=== PATIENT | male | born 1955 | race Caucasian/White ===

== ENCOUNTER 2023-07-03 13:24 | Inpatient (IN) | payer OTHER ==
[~2023-07-03] VITALS: Ht 175.3 cm; Wt 101.1 kg
[2023-07-03 13:58] LABS: Basophils # (auto) 0 10 ^3/uL (0-0.2); Basophils % (auto) 0.2 % (0.0-2.0); Eosinophils # (auto) 0.3 10 ^3/uL (0-0.8); Eosinophils % (auto) 4.5 % (0.0-7.0); Hematocrit 49.2 % (41.0-53.0); Hemoglobin 16.4 g/dL (13.5-17.5); Lymphocytes % (auto) 14.8 % (10.0-50.0); Mean Corpuscular Hemoglobin 29.4 pg (28.0-32.0); Mean Corpuscular Hgb Conc. 33.3 g/dL (32.0-36.0); Mean Corpuscular Volume 88.4 fL (80.0-100.0); Monocytes # (auto) 0.6 10 ^3/uL (0-1.3); Monocytes % (auto) 8.3 % (0.0-12.0); Neutrophils # (auto) 4.9 10 ^3/uL (1.6-8.6); Neutrophils % (auto) 72.2 % (37.0-80.0); Nucleated Red Blood Cells % 0.1 %; Red Blood Cells 5.57 10^6/uL (4.5-5.90); Red Cell Distribution Width 14.9 % (11.8-14.3); White Blood Cell 6.8 10^3/uL (4.4-10.8)
[2023-07-03 14:18] LABS: Alanine Aminotransferase 34 U/L (7-40); Albumin 4.5 g/dL (3.2-4.8); Alkaline Phosphatase 84 U/L (46-116); Anion Gap 7 (5-15); Aspartate Aminotransferase 22 U/L (13-40); BUN/Creatinine Ratio 12.5 (10.0-20.0); Blood Urea Nitrogen 17 mg/dL (9-23); Calcium 9.3 mg/dL (8.5-10.1); Carbon Dioxide 25 mmol/L (20-30); Chloride 106 mmol/L (98-107); Glucose 134 mg/dL (74-106); Potassium 3.7 mmol/L (3.5-5.1); Sodium 138 mmol/L (136-145)
[2023-07-03 14:19] LABS: Bilirubin, Total 0.5 mg/dL (0.2-1.0); Total Protein 6.9 g/dL (5.7-8.2)
[2023-07-03 14:21] LABS: INR 0.99 (0.9-1.15); Prothrombin Time 10.4 sec (9.3-11.8)
[2023-07-03] MEDS: ASPirin-EC 325mg tab PO ONE (14:27)
[2023-07-03 14:37] VITALS: PULSE 62; RESP 16; O2SAT 96
[2023-07-03 15:53] LABS: Urine Bacteria NONE SEEN /hpf (None Seen); Urine Blood Negative /uL (Negative); Urine Clarity Clear (Clear); Urine Color Colorless (Yellow); Urine Protein, UAD Negative (Negative); Urine Specific Gravity 1.005 (1.001-1.035); Urine Urobilinogen Normal (Negative); Urine WBC <1 /hpf (0 - 3); Urine pH 6.5 (5.0-8.0)
[2023-07-03] MEDS ORDERED: HYDROcodone-ACET 5/325MG TAB PO PRN (17:15)
[2023-07-03] MEDS ORDERED: NITROGLYCERIN 0.4 MG SL TAB SL PRN (17:15)
[2023-07-03] MEDS ORDERED: MORPHINE SULFATE INJ 2 MG/ml SYRG IV PRN (17:15)
[2023-07-03] MEDS ORDERED: ONDANSETRON HCL 4 MG/2 ML VIAL IV PRN (17:15)
[2023-07-03] MEDS ORDERED: ACETAMINOPHEN 325 MG TAB PO PRN (17:15)
[2023-07-03] MEDS ORDERED: DOCUSATE SOD 100 MG CAP PO PRN (17:15)
[2023-07-03 19:25] VITALS: PULSE 77; RESP 17; O2SAT 97
[2023-07-03 22:10] VITALS: BP 109/69; PULSE 65; RESP 16; TEMP 97.7; O2SAT 100
[2023-07-03 22:11] VITALS: BP 109/69; PULSE 62; PULSE 65; RESP 16; RESP 18; TEMP 97.7; O2SAT 100; O2SAT 98
[2023-07-03] MEDS ORDERED: LISI10TA34 PO (22:54)
[2023-07-03] MEDS ORDERED: OMEP-448 (22:54)
[2023-07-03] MEDS ORDERED: ATOR10TA52 PO (22:54)
[2023-07-03] MEDS ORDERED: ASPI-543 PO (22:54)
[2023-07-03] MEDS: SODIUM CHLOR 0.9% PF (SALINE LOCK) 10ML VIAL/SYR IV SCH (23:00)
[2023-07-04] VITALS (9 sets, daily range): BP systolic 108–124; BP diastolic 67–84; PULSE 58–74; RESP 14–22; TEMP 97.3–98.4; O2SAT 98–100
[2023-07-04] MEDS: ENOXAPARIN SOD 40 MG/0.4 ML SYRINGE SC SCH (09:33)
[2023-07-05] VITALS (8 sets, daily range): BP systolic 121–147; BP diastolic 73–89; PULSE 53–82; RESP 18–22; TEMP 97.6–98.5; O2SAT 96–100
[2023-07-05 10:24] LABS: Hepatitis B Surface Antigen Negative (Negative)
[2023-07-05 10:45] LABS: Hepatitis C Antibody Negative (Negative)
[2023-07-05] MEDS: ASPirin-EC 81 mg tab PO SCH (12:06)
[2023-07-05] MEDS: LISINOPRIL 5 MG TAB PO SCH (12:07)
[2023-07-05] MEDS ORDERED: SUCR1SUS26 PO (12:55)
[2023-07-05] MEDS: SUCRALFATE 1 GM/10 ML ORAL SUSP PO SCH (18:12)
[2023-07-05] MEDS: ATORVASTATIN 20 MG TAB PO SCH (21:13)
[2023-07-06] VITALS (13 sets, daily range): BP systolic 100–126; BP diastolic 60–87; PULSE 54–79; RESP 14–20; TEMP 97.3–98.5; O2SAT 94–100
[2023-07-06 13:23] LABS: Basophils # (auto) 0 10 ^3/uL (0-0.2); Basophils % (auto) 0.3 % (0.0-2.0); Eosinophils # (auto) 0.2 10 ^3/uL (0-0.8); Eosinophils % (auto) 2.8 % (0.0-7.0); Hemoglobin 16.8 g/dL (13.5-17.5); Lymphocytes # (auto) 0.8 10 ^3/uL (0.4-5.4); Lymphocytes % (auto) 12.2 % (10.0-50.0); Mean Corpuscular Hemoglobin 29.6 pg (28.0-32.0); Mean Corpuscular Hgb Conc. 33.6 g/dL (32.0-36.0); Mean Corpuscular Volume 88.2 fL (80.0-100.0); Monocytes # (auto) 0.5 10 ^3/uL (0-1.3); Monocytes % (auto) 7.9 % (0.0-12.0); Neutrophils # (auto) 4.8 10 ^3/uL (1.6-8.6); Neutrophils % (auto) 76.8 % (37.0-80.0); Nucleated Red Blood Cells % 0.2 %; Red Blood Cells 5.67 10^6/uL (4.5-5.90); Red Cell Distribution Width 14.6 % (11.8-14.3); White Blood Cell 6.3 10^3/uL (4.4-10.8)
[2023-07-06 13:34] LABS: Alanine Aminotransferase 34 U/L (7-40); Albumin 4.4 g/dL (3.2-4.8); Alkaline Phosphatase 90 U/L (46-116); Anion Gap 6 (5-15); Aspartate Aminotransferase 22 U/L (13-40); BUN/Creatinine Ratio 9.2 (10.0-20.0); Bilirubin, Total 0.7 mg/dL (0.2-1.0); Blood Urea Nitrogen 11 mg/dL (9-23); Calcium 9.4 mg/dL (8.7-10.4); Carbon Dioxide 24 mmol/L (20-30); Chloride 109 mmol/L (98-107); Glucose 88 mg/dL (74-106); Potassium 4.1 mmol/L (3.5-5.1); Sodium 139 mmol/L (136-145); Total Protein 6.8 g/dL (5.7-8.2)
[2023-07-06 13:36] LABS: Prothrombin Time 10.5 sec (9.3-11.8)
[2023-07-06] MEDS: VERAPAMIL 2.5MG/ML INJ 2ML VIAL IV ONE (14:03)
[2023-07-06] MEDS: HEPARIN SODIUM (PORCINE) 5000 UNITS/ML 1ML VIAL ONE (14:03)
[2023-07-06] MEDS: MIDAZOLAM HCL 2MG/2ML 2ml VIAL (1mg/ml) ONE (14:04)
[2023-07-06] MEDS: fentaNYL CITRATE 100 MCG/2 ML VL ONE (14:04)
[2023-07-06] MEDS: LIDOCAINE 2%HCL (LOCAL ANESTH.) INJ 20ML MDV ONE (14:04)
[2023-07-06] MEDS: IODIXANOL 320MG/ML 100ML BTL IV ONE (14:04)
== END 2023-07-06 20:20 | disposition home or self-care (01) | DRG 287 ==
LOC: ER 13:24 → TELE 17:11 → TELE-WESTW 22:00
PROVIDERS: ADMIT Internal Medicine; ATTEND Hospitalist
PROC: 4A023N7 Measurement of Cardiac Sampling and Pressure, Left Heart, Percutaneous Approach (ICD-10-PCS; principal; 2023-07-06)
PROC: B211YZZ Fluoroscopy of Multiple Coronary Arteries using Other Contrast (ICD-10-PCS; 2023-07-06)
DX: I25.110 Atherosclerotic heart disease of native coronary artery with unstable angina pectoris (principal); Z82.49 Family history of ischemic heart disease and other diseases of the circulatory system; I10 Essential (primary) hypertension; E78.00 Pure hypercholesterolemia, unspecified; K21.9 Gastro-esophageal reflux disease without esophagitis; Z79.82 Long term (current) use of aspirin; Z79.899 Other long term (current) drug therapy
CPT/HCPCS: 36415; 71045; 76705; 78452; 80053; 81001; 84484; 85025; 85379; 85610; 85730; 86803; 86850; 86900; 86901; 87340; 93005; 93017; 93306; 93458; 99152; G0378; J2250; Q9967

== ENCOUNTER 2024-09-11 14:32 | Inpatient (IN) | payer OTHER ==
[~2024-09-11] VITALS: Ht 175.3 cm; Wt 101.5 kg
[~2024-09-11 14:32] MED LIST: ASPI-543 PO; ATOR10TA52 PO; LISI10TA34 PO; OMEP-448; SUCR1SUS26 PO
--- NOTE | 2024-09-11 15:55 | DVH ---
EXAM: CT HEAD WITHOUT CONTRAST INDICATION: [facility] TECHNIQUE: CT of the head without intravenous contrast. Radiation Dose Information: CT Dose: CTDI volume is 25 mGy. Dose-length product is 250 mGy*cm The dose indicators for CT are the volume Computed Tomography (CT) Dose Index (CTDIvol) and the Dose Length Product (DLP), and are measured in units of mGy and mGy-cm, respectively. These indicators are not patient dose, but values generated from the CT scanner acquisition factors. The report includes radiation exposure data for exposures received during this examination. COMPARISON: None FINDINGS: There is no evidence of acute intracranial hemorrhage, extra-axial collection, mass effect, midline s hift, herniation or hydrocephalus. The ventricles, sulci and cisterns are age appropriate. The yu-white differentiation is intact. Patchy periventricular and subcortical white matter hypoattenuation is nonspecific but may be related to small vessel ischemic disease. The visualized paranasal sinuses and mastoid air cells are clear. The surrounding soft tissues and osseous structures are unremarkable. IMPRESSION: No acute intracranial abnormality.
--- NOTE | 2024-09-11 16:03 | DVH ---
EXAM: CT CERVICAL WITHOUT CONTRAST INDICATION: [facility] EXAM DATE: 09/11/2024 03:24 PM COMPARISON: None TECHNIQUE: Noncontrast axial CT images of the cervical spine were performed. Sagittal and coronal ref ormatted images were obtained. Radiation optimization: All CT scans at this facility use at least one of these dose optimization techniques: automated exposure control mA and/or kV adjustment per patie nt size (includes targeted exams where dose is matched to clinical indication) or iterative reconstr uction. Radiation Dose Information: CT Dose: CTDI volume is 22.91 mGy. Dose-length product is 709.71 mGy*cm FINDINGS/IMPRESSION: 1. No fracture of the cervical spine. 2. Advanced cervical degenerative disc disease and facet arthropathy with significant neural foramina l stenosis at C3-C4 bilaterally, C4-C5 bilaterally, C5-C6 on the right, C6-C7 bilaterally. These fin dings May correspond to upper extremity radicular symptoms in the bilateral C4, bilateral C5, right C 6, and bilateral C7 nerve root distributions. Consider follow-up noncontrast MRI of the cervical spi ne for better characterization, especially if the patient complains of upper extremity radicular symp toms. 3. Asae-zh-rxudrllw spinal canal stenosis at C4-C5 and C6-C7, mild spinal canal stenosis at C3-C4 and C5-C6. These would also be better characterized with noncontrast MRI, as there may be mass effect on the cervical spinal cord at multiple levels. 4. Small pericardial effusion is partially visualized here. 5. Atherosclerotic calcifications of the bilateral carotid bulbs. Consider follow-up outpatient hendrix tid ultrasound for better characterization. 6. Fluid in the right mastoid air cells may be due to sterile fluid or mastoiditis.
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
[2024-09-11] MEDS: NEOMYCIN-BACITRACIN-POLYM UNITDOSE PKG TOP OINT TOP ONE (17:22)
--- NOTE | 2024-09-11 17:49 | ECG ---
[facility] Test Date: 2024-09-11 Test Time: 17:47:29 Pat Name: CHANTALE SCHWAB Department: ER Room: 0286T Gender: M Rn Chronic: NICKO : 1955 Requested By: BARBER TESFAYE Order Number: [id number] Reading MD: Abhijit Marks Measurements Intervals [place] Rate: 82 P: 33 IA: 152 QRS: 26 QRSD: 83 T: 0 QT: 362 QTc: 423 Interpretive Statements Sinus rhythm Electronically Signed On 09-13-2024 14:57:14 PDT by Abhijit Marks Please click the below link to view image of tracing.
[2024-09-11 17:59] LABS: Basophils # (auto) 0 10 ^3/uL (0-0.2); Basophils % (auto) 0.3 % (0.0-2.0); Eosinophils # (auto) 0.1 10 ^3/uL (0-0.8); Eosinophils % (auto) 1.5 % (0.0-7.0); Hematocrit 41.4 % (41.0-53.0); Hemoglobin 13.4 g/dL (13.5-17.5); Lymphocytes # (auto) 0.9 10 ^3/uL (0.4-5.4); Lymphocytes % (auto) 9.7 % (10.0-50.0); Mean Corpuscular Hemoglobin 25.7 pg (28.0-32.0); Mean Corpuscular Hgb Conc. 32.5 g/dL (32.0-36.0); Monocytes # (auto) 0.6 10 ^3/uL (0-1.3); Monocytes % (auto) 6.8 % (0.0-12.0); Neutrophils # (auto) 7.3 10 ^3/uL (1.6-8.6); Neutrophils % (auto) 81.7 % (37.0-80.0); Platelet Count (auto) 215 10^3/uL (140-450); Red Blood Cells 5.23 10^6/uL (4.5-5.90); Red Cell Distribution Width 18.9 % (11.8-14.3); White Blood Cell 8.9 10^3/uL (4.4-10.8)
[2024-09-11 18:21] LABS: Alanine Aminotransferase 28 U/L (7-40); Albumin 4.5 g/dL (3.2-4.8); Alkaline Phosphatase 64 U/L (46-116); Anion Gap 7 (5-15); Aspartate Aminotransferase 21 U/L (13-40); BUN/Creatinine Ratio 13.3 (10.0-20.0); Bilirubin, Total 0.4 mg/dL (0.2-1.0); Blood Urea Nitrogen 18 mg/dL (9-23); CRP High Sensitivity 0.46 mg/dL (<1.0); Calcium 9.5 mg/dL (8.7-10.4); Carbon Dioxide 23 mmol/L (20-31); Glucose 97 mg/dL (74-106); Potassium 4.2 mmol/L (3.5-5.1); Sodium 141 mmol/L (136-145); Total Protein 6.4 g/dL (5.7-8.2)
[2024-09-11] MEDS ORDERED: ONDANSETRON HCL 4 MG/2 ML VIAL IV PRN (18:45)
[2024-09-11] MEDS ORDERED: NITROGLYCERIN 0.4 MG SL TAB SL PRN (18:45)
[2024-09-11] MEDS ORDERED: ACETAMINOPHEN 325 MG TAB PO PRN (18:45)
[2024-09-11] MEDS ORDERED: MORPHINE SULFATE INJ 2 MG/ml SYRG IV PRN (18:45)
[2024-09-11 19:01] LABS: Chloride 111 mmol/L (98-107)
[2024-09-11 19:06] LABS: Erythrocyte Sedimentation Rate 2 mm/hr (0-20)
[2024-09-11 20:26] VITALS: O2SAT 99
[2024-09-11 21:07] VITALS: PULSE 69; RESP 17; O2SAT 98
[2024-09-11] MEDS: ATORVASTATIN 20 MG TAB PO SCH (21:40)
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
[2024-09-12] VITALS (8 sets, daily range): BP systolic 113–131; BP diastolic 70–85; PULSE 60–75; RESP 18–20; TEMP 96.3–97.8; O2SAT 95–100
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
[2024-09-12] MEDS: SODIUM CHLORIDE 0.9% 1,000 ML IV ONE (04:20)
[2024-09-12] MEDS: PANTOPRAZOLE 40 MG TAB PO SCH (06:02)
[2024-09-12] MEDS: SUCRALFATE 1 GM/10 ML ORAL SUSP PO SCH (06:02)
[2024-09-12 07:09] LABS: Basophils # (auto) 0 10 ^3/uL (0-0.2); Basophils % (auto) 0.2 % (0.0-2.0); Eosinophils # (auto) 0.2 10 ^3/uL (0-0.8); Eosinophils % (auto) 3.3 % (0.0-7.0); Hematocrit 40.3 % (41.0-53.0); Hemoglobin 13.5 g/dL (13.5-17.5); Lymphocytes # (auto) 0.7 10 ^3/uL (0.4-5.4); Lymphocytes % (auto) 10.6 % (10.0-50.0); Mean Corpuscular Hemoglobin 26.4 pg (28.0-32.0); Mean Corpuscular Hgb Conc. 33.5 g/dL (32.0-36.0); Monocytes # (auto) 0.7 10 ^3/uL (0-1.3); Monocytes % (auto) 10.4 % (0.0-12.0); Neutrophils # (auto) 4.7 10 ^3/uL (1.6-8.6); Neutrophils % (auto) 75.5 % (37.0-80.0); Nucleated Red Blood Cells % 0.1 %; Platelet Count (auto) 210 10^3/uL (140-450); Red Blood Cells 5.11 10^6/uL (4.5-5.90); Red Cell Distribution Width 18.8 % (11.8-14.3); White Blood Cell 6.3 10^3/uL (4.4-10.8)
[2024-09-12 07:15] LABS: Alanine Aminotransferase 27 U/L (7-40); Albumin 4.5 g/dL (3.2-4.8); Alkaline Phosphatase 62 U/L (46-116); Anion Gap 8 (5-15); Aspartate Aminotransferase 19 U/L (13-40); BUN/Creatinine Ratio 13.6 (10.0-20.0); Bilirubin, Total 0.7 mg/dL (0.2-1.0); Blood Urea Nitrogen 16 mg/dL (9-23); Calcium 9.1 mg/dL (8.7-10.4); Carbon Dioxide 24 mmol/L (20-31); Glucose 92 mg/dL (74-106); Potassium 4.2 mmol/L (3.5-5.1); Sodium 139 mmol/L (136-145); Total Protein 6.3 g/dL (5.7-8.2)
[2024-09-12 07:21] LABS: Chloride 107 mmol/L (98-107)
[2024-09-12 09:11] LABS: Urine Bacteria None Seen /hpf (None Seen)
[2024-09-12] MEDS: LISINOPRIL 5 MG TAB PO SCH (09:13)
[2024-09-12 09:19] LABS: Urine Blood Negative /uL (Negative); Urine Clarity Clear (Clear); Urine Color Light-Yellow (Yellow); Urine Protein, UAD Negative (Negative); Urine Specific Gravity 1.037 (1.001-1.035); Urine Squamous Epithelial Cell FEW /hpf (<5); Urine Urobilinogen Normal (Negative); Urine WBC < 1 /HPF (0-3); Urine pH 6.5 (5.0-9.0)
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
--- NOTE | 2024-09-12 12:47 | DVHSR ---
APPROVED REPORT EXAM: Two-dimensional and M-mode echocardiogram with Doppler and color Doppler. Blood Pressure: 128/83 mmHg INDICATION Syncope Pericardial effusion RISK FACTORS Height: 69, Weight: 224 DIMENSIONS LVDd5.0 (3.8-5.7cm)LA (2D)4.2 (1.9-4.0cm)Aortic Root3.6 (2.0-3.7cm) LVDs3.4 (2.5-4.0cm)LA (MM) (1.9-4.0cm)Aortic Cusp Exc1.9 (1.5-2.0cm) EF (%) 60.0 (55-70%)Rt. Atrium4.5 (1.9-4.0cm)Asc. Aorta cm IVSd1.1 (0.7-1.1cm)RV (D) (1.8-2.4cm) PWd1.4 (0.7-1.1cm) Mitral Valve MitralMitral Stenosis E wave0.71m/sMV Mean GR.2mmHg A wave0.74m/sMV Peak GR.123mmHg E/A ratio1.02D MVAcm2 DECEL [id number] 1/2 [id number] IVRTmsDop MVA3.18cm2 Aortic Valve Aortic ValveAortic Stenosis V11.39m/Ramírez Mean GR.7mmHg V21.94m/Ramírez Peak GR.15mmHg LVOT Diameter2.2 (1.8-2.4cm)Doppler AVA2.72cm2 Pulmonic Valve V20.92m/s Tricuspid Valve TR Velocity2.68m/s [id number] Conclusion lvef 60 % by visual estimate normal rv function left atrium enlarged mild no severe valve abnormalities noted pericardium trivial effusion noted
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
[2024-09-13] VITALS (9 sets, daily range): BP systolic 103–128; BP diastolic 53–92; PULSE 56–97; RESP 18; TEMP 97.4–98; O2SAT 97–100
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
[2024-09-13 14:55] LABS: Partial Thromboplastin Time 25.4 SEC (24.5-34.5); Prothrombin Time 10.6 sec (9.3-11.8)
--- NOTE | 2024-09-13 15:05 | DVH ---
EXAM: XY CHEST PORTABLE Indication: pain Technique: Single frontal view of the chest was obtained Comparison: XY CHEST PORTABLE on DOS: 07/03/23 FINDINGS: Lines and Tubes: None Lungs: No focal consolidation. Pleura: No effusion. No pneumothorax. Cardiomediastinal contours: Unremarkable Bones: No acute osseous abnormality. IMPRESSION: No acute cardiopulmonary disease.
[2024-09-14] VITALS (7 sets, daily range): BP systolic 107–119; BP diastolic 62–77; PULSE 60–109; RESP 15–19; TEMP 96.7–97.9; O2SAT 96–100
[2024-09-14] MEDS ORDERED: fentaNYL CITRATE 100 MCG/2 ML VL ONE ×2 (10:33→11:34)
[2024-09-14] MEDS ORDERED: PROPOFOL 10 MG/ML 20 ML IV ONE ×2 (10:34→11:34)
[2024-09-14] MEDS ORDERED: KETAMINE 50mg/ML 1ml syringe ONE (11:33)
[2024-09-14] MEDS ORDERED: HYDROmorphone HCL 2 MG/ML VL/or syr ONE (11:33)
[2024-09-14] MEDS ORDERED: GLYCOPYRROLATE 0.2 MG/ML 1ML VIAL ONE (11:34)
[2024-09-14] MEDS ORDERED: ROCURONIUM 10MG/ML 10ML VIAL IV ONE (11:34)
[2024-09-14] MEDS ORDERED: ONDANSETRON HCL 4 MG/2 ML VIAL ONE (11:34)
[2024-09-14] MEDS ORDERED: MIDAZOLAM HCL 2MG/2ML 2ml VIAL (1mg/ml) ONE (11:34)
[2024-09-14] MEDS ORDERED: KETOROLAC TROMETH 30 MG/ML 1ML VIAL ONE (11:34)
[2024-09-14] MEDS ORDERED: DexAMETHasone SOD PHOS 10MG/1ML VIAL INJ ONE (11:34)
[2024-09-14] MEDS ORDERED: fentaNYL CITRATE 5 ML ONE (11:34)
[2024-09-14] MEDS ORDERED: LIDOCAINE 1% INJ PF 5ML AMP ONE (11:34)
[2024-09-14] MEDS ORDERED: ePHEDrine SULFATE 50 MG/ML AMP ONE (11:34)
--- NOTE | 2024-09-14 13:44 | PRN ---
Misceleneous Note Note Note Surgical/procedural interval history and physical note Current H and P was reviewed. The patient was reexamined. Re-evaluation of the patient confirms the necessity for the scheduled procedure of Carvical 3-6 anterior cervical discectomy and fusion with bone graft and instrumentation No change has occurred in the patient's condition since the H and P/ spine consult was complete no less than 30 days ago. Physicians verification of informed consent The patient was counseled regarding the procedure, its indications, risks, potential complications, and alternatives. The risks/benefits/alternatives of surgery were explained to the patient in detail including but not limited to , stroke, paralysis, myocardial infarction, bleeding, infection, complications of anesthesia (dry mouth, sore throat, dental damage, respiratory depression, blindness), postoperative infection, incomplete relief of symptoms, recurrence of symptoms, damage to blood vessels, nerves and tendons, pulmonary embolism and possible need for repeat surgery in the future. Pain, damage to surrounding soft tissue structures, need for reoperation or future surgery, persistent pain/disability/deformity, bone graft collapse or extrusion of interbody device, instrumentation failure, need for instrumentation removal, dural tear, temporary or permanent nerve root damage, deep vein thrombosis, pulmonary embolism, were described to the patient in detail and the patient wishes to proceed. No guarantee of surgical outcome/improvement was implied. All of the questions were answered thoroughly, patient was agreeable to proceed and consents were obtained. Physicians verification of informed consent for blood transfusion There is a reasonable possibility that blood transfusions will be necessary as a result of the patient's procedure. I have discussed the following with the patient/patient's legal paper sales representative. An explanation of benefits and risks of the transfusion of blood or blood products and possible alternatives. All questions have been answered to the patient's or they are legal representatives satisfaction. Informed consent -The patient has been informed of: -The nature of the proposed care, treatment, services, medications, interventions or procedures. -Potential benefits, risks or side effects, including potential problems related to the procedure. -The likelihood of achieving care treatment and Service goals -Possible alternatives to the procedure/proposed care, treatment and service. -The relative risks, benefits and side effects related to alternatives, including possible results of not receiving care, treatment and services. -When indicated, any limitations on the confidentiality of the informed leaning from or about the patient. -if appropriate, the risks, benefits and alternatives of the drugs to be used for sedation/analgesia including moderate sedation. -if appropriate, patient has been provided information on the risks, benefits and alternatives to the transfusion of blood and/or blood products. -if appropriate, the patient has been provided information regarding the Zac Hollis blood act. Call with questions Anne-Marie Stephens [facility] Orthopaedic Spine Surgery nurse practitioner For Dr Joanie Moreno Patient was examined, chart reviewed, labs evaluated, and diagnostic studies and findings analyzed. Case was discussed with Dr. Tay Moreno who formulated the plan of care. This medical document was created using an electronic medical record system with [employer] dictation system. Although this document has been carefully reviewed, there might still be some phonetic and typographical errors. These areas are purely typographical due to imperfections of the software programs, and do not reflect any compromise in the patient's medical care. ZOE STEPHENS NP Sep 14, 2024 13:44
[2024-09-14] MEDS ORDERED: SUGAMMADEX 200mg/2ml Vial (100MG/ML) IV ONE (14:20)
--- NOTE | 2024-09-14 16:49 | DVHOP2 ---
Operative Report - 2 Report Details Date: 09/14/24 Preop Diagnosis: cervical spinal stenosis with myelo radiculopathy Postop Diagnosis: same as pre op Surgeon: Tay Moreno MD Property Investor: Haritha Stephens NP Anesthesiologist: Jayme Anesthesia: General Consent: The patient was informed of the risks and benefits of the procedure. These include but are not limited to complications of anesthesia, postoperative infection, incomplete relief of symptoms, recurrence of symptoms, damage to blood vessels, nerves and tendons, deep venous thrombosis, pulmonary embolism and possible need for repeat surgery in the future. 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 Cervical Degenerative Disk Disease and Spinal Stenosis Causing incapacitating neck pain, myelo-radiculopathy and progressive neurologic deficit Procedure: Cervical 3 to 4 anterior cervical discectomy with Cervical 3-4 foraminotomies and facetectomies to decompression the spinal canal and Cervical 4 nerve roots Cervical 4 to 5 anterior cervical discectomy with Cervical 4-5 foraminotomies and facetectomies to decompression the spinal canal and Cervical 5 nerve roots Cervical 5 to 6 anterior cervical discectomy with Cervical 5-6 foraminotomies and facetectomies to decompression the spinal canal and Cervical 6 nerve roots Cervical 3-6 anterior cervical Fusion Cervical 3-6 anterior cervical instrumentation with freestanding cages Cervical 3-4 placement of allograft prosthetic device Cervical 4-5 placement of allograft prosthetic device Cervical 5-6 placement of allograft prosthetic device Microscope for micro dissection Surgeon: Tay Moreno MD Anesthesia: General Assist: Haritha Stephens NP Fluids and EBL: see anesthesia note Procedure Note: The patient was seen in the Pre-anesthesia Care Unit and the site of the incis ion was initialed by me with a felt tipped marker. All questions by the patient were answered to the satisfaction of the patient and the chart was reviewed. The patient was taken to the operating room and placed supine on the [facility] Flat top table. General anesthesia was induced. Neuromonitoring leads were placed. A rolled towel was placed between the shoulder blades to hyperextend out the chest which will allow better exposure of the cervical spine. Halter traction to 10 pounds was placed. The arms were padded and adducted to the patients side making sure all pulses in the hands were present. Tape traction was undertaken on the shoulders to give us better radiographic exposure of the distal cervical spine. A gel-pad was placed under the occiput and 5 degrees of extension was placed on the neck without adverse effects to the patient. The anterior neck was prepped and draped. Pre-operative antibiotics were given 30 minutes prior to the start of the procedure. A c-arm fluoroscope was used to denise out the incision site. At this time, a time out was taken per usual protocol. Next an incision was made through the skin with a 15 blade scalpel through the subcutaneous tissue down to the platysma. Self-retainers were placed. The platysma was incised along the longitudinal border with a Metzenbaum scissors. Blunt dissection was made through the deep cervical and pre-tracheal fascia taking care to protect the carotid sheath laterally and the Trachea/esophagus medially. The dissection was carried down to the prevertebral fascia. Any crossing vessels were ligated using a vascular clip or coagulated with a bovie. An esophageal retractor was next used to retract the trachea/esophagus and a bent [address] through the anterior annulus of the cervical disk and a lateral C-arm fluoroscopic image was taken to confirm that we were at the correct level. Next, bovie electrocautery was used to expose the bones of cervical 3,4,5,6 and bipolar electrocuatery was used to lift up the Longus colli and capitus muscles. Black-Belt Self Retainers were used to retract the longus colli and capitus muscles bilaterally as well as the trachea/esophagus to the right and the carotid sheath to the left. Smooth thin Black-Belt retractors were placed proxi thao and distally and a needle was placed again in the anterior annulus of the disk and an image taken to confirm the correct level. At this point, the microscope was wheeled in and an 11 blade scalpel incised the anterior annulus of the cervical 3/4 and 4/5 and 5/6 disks. Next, straight and curved curettes removed the remainder of the disks all the way down to the posterior longitudinal ligament. Carefully, a Abigailison number one rongeur incised the posterior longitudinal ligament at the lateral end of the above disks and using a micro, blunt tip nerve hook to separate the posterior longitudinal ligament from the dura, alternating 1 mm and 2 mm Kerison rongeurs removed the posterior longitudinal ligament. Next, Kerison 1mm and 2 mm rongeurs were alternated to get under the uncinate processes and undercut them to perform foraminotomies and factectomies at the cervical 3/4 and 4/5 and 5/6 levels to decompress the central canal and cervical 4,5 and 6 nerve roots. Next the microscope was wheeled away and the c-arm fluoroscope was wheeled into the field and a lateral image was obtained. Increasing size graft trials were used starting at a 5 mm thick size until the proper tension in the disk space and height hindu obtained. We then placed final free standing cages at C3/4 and 4/5 and 5/6. Satisfactory placement was confirmed in the AP and lateral views using a C-arm fluoroscope. Copious irrigation of the wound with sterile saline and all bleeding was controlled before closure initiated. At this point, a 10 Swedish round Yov[address] Drain was place deep to the Platysma muscle and the Platysma was approximated with one interrupted 0-Vicryl suture. The subcutaneous tissue was closed with interrupted 2-0 vicryl sutures and the skin was closed with ketty. Sterile dressings were placed and a cervical collar placed, the patient extubated, transferred to the stretcher and taken to the Recovery Room in unremarkable condition. Other Notes: cpt codes: 52967,05495,23219,[id number],[id number],43245 Condition Stable Disposition Still a Patient TAY MORENO MD Sep 14, 2024 16:49
[2024-09-14] MEDS ORDERED: HYDROmorphone HCL 2 MG/ML VL/or syr IV PRN (17:00)
--- NOTE | 2024-09-14 18:15 | DVH ---
EXAM: XY C ARM FLUOROSCOPY UP TO 60MIN, XY CERVICAL SPINE 3V HISTORY: C3-6 ANTERIOR CERVICAL DISCECTOMY/FUSION TECHNIQUE: Intraoperative radiographs of the cervical spine were obtained. FLUOROSCOPY TIME: 7.3 seconds FLUOROSCOPY IMAGES: 8 TOTAL DOSE: 0.5 mGy COMPARISON: None FINDINGS/IMPRESSION: Refer to intraoperative report for further evaluation.
[2024-09-14] MEDS: HYDROcodone-ACET 5/325MG TAB PO PRN (20:15)
[2024-09-14] MEDS: D5W/SOD CHLO 0.9% 1,000 ML IV SCH (22:45)
[2024-09-15] VITALS (7 sets, daily range): BP systolic 103–114; BP diastolic 57–76; PULSE 62–107; RESP 17–18; TEMP 97.1–98.1; O2SAT 95–100
[2024-09-15 07:25] LABS: Basophils # (auto) 0 10 ^3/uL (0-0.2); Eosinophils # (auto) 0 10 ^3/uL (0-0.8); Hematocrit 40.6 % (41.0-53.0); Hemoglobin 13.1 g/dL (13.5-17.5); Lymphocytes # (auto) 0.5 10 ^3/uL (0.4-5.4); Lymphocytes % (auto) 4.2 % (10.0-50.0); Mean Corpuscular Hemoglobin 25.6 pg (28.0-32.0); Mean Corpuscular Hgb Conc. 32.3 g/dL (32.0-36.0); Mean Corpuscular Volume 79.2 fL (80.0-100.0); Monocytes # (auto) 0.8 10 ^3/uL (0-1.3); Monocytes % (auto) 6.5 % (0.0-12.0); Neutrophils # (auto) 10.7 10 ^3/uL (1.6-8.6); Neutrophils % (auto) 89.3 % (37.0-80.0); Nucleated Red Blood Cells % 0.1 %; Platelet Count (auto) 215 10^3/uL (140-450); Red Blood Cells 5.12 10^6/uL (4.5-5.90); Red Cell Distribution Width 18.5 % (11.8-14.3)
[2024-09-15] MEDS: SUCCINYLCHOLINE CHLORIDE 20 MG/ML 10ML VIAL IV ONE (07:33)
[2024-09-15] MEDS: IOHEXOL 300 MG/ML 100ML BOTTLE IJ ONE ×2 (07:33)
[2024-09-15] MEDS: levoFLOXacin 500MG 100 ML IV ONE (07:34)
[2024-09-15] MEDS: PROPOFOL 100 ML IV ONE (07:34)
[2024-09-15] MEDS: TRANEXAMIC ACID 20 ML ONE (07:34)
[2024-09-15] MEDS: ceFAZolin 2 GM/D5W50ml 50 ML IV ONE (07:34)
[2024-09-15] MEDS: ONDANSETRON HCL 4 MG/2 ML VIAL IV ONE (07:35)
[2024-09-15 07:36] LABS: Anion Gap 8 (5-15); Carbon Dioxide 23 mmol/L (20-31); Potassium 4.2 mmol/L (3.5-5.1); Sodium 142 mmol/L (136-145)
[2024-09-15 07:37] LABS: Calcium 9.2 mg/dL (8.7-10.4)
[2024-09-15 07:38] LABS: Chloride 111 mmol/L (98-107)
[2024-09-15 07:42] LABS: BUN/Creatinine Ratio 12.1 (10.0-20.0); Blood Urea Nitrogen 13 mg/dL (9-23)
[2024-09-15 07:43] LABS: Glucose 117 mg/dL (74-106)
--- NOTE | 2024-09-15 11:44 | DVHPN2 ---
Progress Note - Surgical Date Seen: Sep 15, 2024 Post op day Post op day: 1 Subjective Patient reports: No new complaints, Feels better Review of Systems: HEENT:Normal, CVS:Normal, RESPIRATORY:Normal, GI:Normal, :Normal, MSK:Normal (patient was able ), NEURO:Normal Objective Vital signs Vital Sign Date Time Temp Pulse Resp B/P (MAP) Pulse Ox O2 Delivery O2 Flow Rate FiO2 09/15/24 09:07 98.1 62 18 113/66 (82) 100 98.1 09/15/24 08:00 Room Air* 0 21 Total Intake and Output 09/14/24 09/14/24 09/15/24 15:00 23:00 07:00 Intake Total 100 ml 150 ml Output Total 450 ml Balance 100 ml -300 ml Medications Current Medications Medications Dose Ordered Sig/Win Route Start Time Stop Time Status Last Admin Dose Admin Acetaminophen/ Hydrocodone Bitart 1 tab Q4HPRN PRN PO 09/11/24 18:45 09/15/24 11:27 1 TAB Ondansetron HCl 4 mg Q6HPRN PRN IV 09/11/24 18:45 Acetaminophen 650 mg Q6HP PRN PO 09/11/24 18:45 Sucralfate 1 gm BIDAC PO 09/12/24 07:00 09/15/24 06:39 1 GM Atorvastatin Calcium 10 mg HS PO 09/11/24 22:00 09/14/24 21:40 10 MG Lisinopril 10 mg DAILY PO 09/12/24 10:00 09/15/24 08:45 10 MG Pantoprazole Sodium 40 mg DAILY@0600 PO 09/12/24 06:00 09/15/24 05:27 40 MG Laboratory Laboratory Tests 09/15/24 06:06 Test 09/15/24 06:06 Range/Units Serum Glucose 117 H 74-106 mg/dL Examination: GENERAL:Normal, HEENT:Normal, NECK:Normal, LUNGS:Normal, CVS:Normal, ABDOMEN:Normal, MSK:Normal, SKIN:Normal (Left anterior surgical site well approximated with ketty, no leaking drainage ecchymosis or bruising noted), NEURO:Normal (Patient states headaches are resolved patient does decline in preoperative symptoms), :Normal Problem List/Assessment/Plan Problems: (1) Postoperative pain after spinal surgery (2) Muscle spasms of neck (3) Cervical stenosis of spine Assessment and Plan Left anterior neck drain Discontinued today Patient up walking with physical therapy In verbalized improvement in preoperative symptoms Nursing can change dressing as needed Patient is cleared to discharge from a spine surgery perspective Call for an appointment Call [phone] for a appointment, or to change or confirm your appointment [id number] [facility], [address] [id number] You may shower and let the water run over your neck wound however you must pat it dry with sterile 4x4s gauze. Please do not use regular household towels. Keep your incision covered when you are out of your house or when you are wearing clothing that rub on your incision. He will also do not want to have a seatbelt rubbing on your incision. If you are at home and you have clothing that does not contact your incision you may leave it open to air. You may have some residual drainage from the drain site for the next 2-3 days which is normal it should be a very light pink or nelli color fluid. If it changes or becomes bright red please call [phone]. Call with questions Anne-Marie Stephens [facility] Orthopaedic Spine Surgery nurse practitioner For Dr Joanie Moreno Patient was examined, chart reviewed, labs evaluated, and diagnostic studies and findings analyzed. Case was discussed with Dr. Tay Moreno who formulated the plan of care. This medical document was created using an electronic medical record system with [employer] dictation system. Although this document has been carefully reviewed, there might still be some phonetic and typographical errors. These areas are purely typographical due to imperfections of the software programs, and do not reflect any compromise in the patient's medical care. My Orders My Orders Orders - ZOE STEPHENS NP Procedure Category Date Status Time Cardiac DIET 09/15/24 Transmitted Diet-2gna,Lofat,Lochol Breakfast Plan discussed with Plan discussed with: Patient, Spouse, Other ([phone] x [phone]) Visit Coding Surgery Date of Service if different f: Sep 14, 2024 Billing Provider: ZOE STEPHENS NP Surgery Visit Codes: NOT BILLABLE ZOE STEPHENS NP Sep 15, 2024 11:43
[2024-09-15] MEDS ORDERED: THROAT LOZENGES(CEPASTAT) MT PRN (12:15)
[2024-09-15] MEDS ORDERED: HYDR-4902 PO (12:55)
[2024-09-15] MEDS ORDERED: CYCL-611 PO (12:55)
--- NOTE | 2024-09-15 12:58 | DVHDS2 ---
ASSESSMENT ASSESSMENT Hospital Course Surgery went as planned with no complications. After a short stay in the PACU patient was admitted to the hospital for postoperative care and pain management over the course of 1 postoperative days the patient was able to tolerate a diet, ambulate independently, the pain has been managed with oral analgesics. The surgical site is well-approximated with sutures, some residual drainage continues from drain insertion sites after removal, however it is manageable with daily wound care and dressing changes. Some improvement to preoperative symptoms of extremities, strength and motion. There is new post operative pain that is localized to the surgical site. The patient will follow-up with Dr. Moreno for wound check and staple removal. Call [phone] for a appointment, or to change or confirm your appoinment [id number] [facility], [address], [place] [id number] You may shower and let the water run over your neck wound however you must pat it dry with sterile 4x4s gauze. Please do not use regular household towels. Keep your incision covered when you are out of your house or when you are wearing clothing that rub on your incision. He will also do not want to have a seatbelt rubbing on your incision. If you are at home and you have clothing that does not contact your incision you may leave it open to air. You may have some residual drainage from the drain site for the next 2-3 days which is normal it should be a very light pink or nelli color fluid. If it changes or becomes bright red please call [phone]. Assessment same as pre op ZOE BROWN NP Sep 15, 2024 12:58
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
== END 2024-09-15 17:40 | disposition home or self-care (01) | DRG 472 ==
LOC: ER 14:32 → OVERFLOW 18:34 → TELE-WESTW 22:51 → WEST WING 09-13 23:51
PROVIDERS: ADMIT Internal Medicine; ATTEND Internal Medicine
PROC: 0RB30ZZ Excision of Cervical Vertebral Disc, Open Approach (ICD-10-PCS; 2024-09-14)
PROC: 01N10ZZ Release Cervical Nerve, Open Approach (ICD-10-PCS; 2024-09-14)
PROC: 00NW0ZZ Release Cervical Spinal Cord, Open Approach (ICD-10-PCS; 2024-09-14)
PROC: 4A11X4G Monitoring of Peripheral Nervous Electrical Activity, Intraoperative, External Approach (ICD-10-PCS; 2024-09-14)
PROC: 0RG20A0 Fusion of 2 or more Cervical Vertebral Joints with Interbody Fusion Device, Anterior Approach, Anterior Column, Open Approach (ICD-10-PCS; principal; 2024-09-14 13:37)
DX: M48.02 Spinal stenosis, cervical region (principal); G99.2 Myelopathy in diseases classified elsewhere; I31.39 Other pericardial effusion (noninflammatory); I25.10 Atherosclerotic heart disease of native coronary artery without angina pectoris; I10 Essential (primary) hypertension; M54.12 Radiculopathy, cervical region; K21.9 Gastro-esophageal reflux disease without esophagitis; G89.29 Other chronic pain; E78.5 Hyperlipidemia, unspecified; Z79.82 Long term (current) use of aspirin; Z79.899 Other long term (current) drug therapy; V89.2XXA Person injured in unspecified motor-vehicle accident, traffic, initial encounter; Y93.89 Activity, other specified; Y92.89 Other specified places as the place of occurrence of the external cause; Y99.8 Other external cause status; G89.18 Other acute postprocedural pain
CPT/HCPCS: 36415; 70450; 71045; 71260; 72040; 72125; 74177; 76000; 80048; 80053; 81001; 84484; 85025; 85610; 85652; 85730; 86141; 86850; 86900; 86901; 93005; 93306; 97110; 97163; G0378; J0330; J1100; J1885; J1956; J2250; J2405; J2704; J7042